=== PATIENT | female | born 2000 | race Two or more races ===

== ENCOUNTER 2022-08-24 16:56 | Emergency (ER) | payer OTHER ==
[~2022-08-24] VITALS: Ht 149.9 cm; Wt 99.8 kg
[2022-08-24 17:33] VITALS: BP 122/88
--- NOTE | 2022-08-24 18:24 | NUR ---
PRECISION INSPECTOR AT BEDSIDE FOR XRAY
[2022-08-24] MEDS ORDERED: HYDROCODONE/APAP 10/325MG TABLET ONE (18:49)
[2022-08-24] MEDS ORDERED: IBUPROFEN 600 MG TABLET ONE (18:49)
[2022-08-24] MEDS: IBUPROFEN 600 MG TABLET PO ONE (18:51)
[2022-08-24] MEDS: HYDROCODONE/APAP 10/325MG TABLET PO ONE (18:52)
--- NOTE | 2022-08-24 19:05 | NUR ---
1733 PT C/O R ANKLE PAIN S/P TRIP ON UNEVEN PAVEMENT AT AROUND 1530.
[2022-08-24] MEDS ORDERED: TRAM50TA2 PO (19:30)
[2022-08-24] MEDS ORDERED: IBUP-1955 PO (19:30)
--- NOTE | 2022-08-24 19:42 | NUR ---
Patient discharged to home in stable condition. RX Written and verbal after care instructions given. Patient verbalizes understanding of instruction. pt ambulatory with a steady gait with crutches
== END 2022-08-24 20:05 | disposition home or self-care (01) ==
LOC: ER 17:11
DX: S93.491A Sprain of other ligament of right ankle, initial encounter (principal); W01.0XXA Fall on same level from slipping, tripping and stumbling without subsequent striking against object, initial encounter; Y93.89 Activity, other specified; Y92.89 Other specified places as the place of occurrence of the external cause; Y99.8 Other external cause status
CPT/HCPCS: 73590-TC; 73610-TC